=== PATIENT | female | born 1990 | race American Indian/Alaskan Native ===

== ENCOUNTER 2016-12-18 21:00 | Emergency (ER) | payer OTHER ==
[2016-12-18 21:09] VITALS: BP 121/88
[2016-12-19] MEDS ORDERED: MOTRIN PO ONE (01:10)
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
== END 2016-12-19 04:17 | disposition home or self-care (01) ==
LOC: ED 21:00
DX: S43.492A Other sprain of left shoulder joint, initial encounter (principal); V49.49XA Driver injured in collision with other motor vehicles in traffic accident, initial encounter; Y92.488 Other paved roadways as the place of occurrence of the external cause; Y93.89 Activity, other specified; Y99.8 Other external cause status
CPT/HCPCS: 72040